=== PATIENT | male | born 1975 | race Caucasian/White ===

== ENCOUNTER 2020-06-28 14:26 | Emergency (ER) | payer BC, OTHER ==
[2020-06-28 14:38] VITALS: BP 149/103; PULSE 111; TEMP 99.6; BMI 35.9
== END 2020-06-28 15:44 | disposition home or self-care (01) ==
LOC: FER 14:26
DX: S63.259A Unspecified dislocation of unspecified finger, initial encounter (principal)
CPT/HCPCS: 73140-TC-RT-FY; 99283-25